=== PATIENT | male | born 1940 | race Caucasian/White ===

== ENCOUNTER 2024-04-19 10:27 | Emergency (ER) | payer MEDICARE, SELFPAY ==
[2024-04-19 10:40] VITALS: BP 181/85
--- NOTE | 2024-04-19 12:02 | ED.GENMED ---
History of Present Illness
General
Chief Complaint: Skin Problem
Source: patient
Exam Limitations: none
Time Seen by Provider: 04/19/24 11:04
Nursing documentation reviewed up to this point in time: agreed with
History of Present Illness
History of Present Illness:
Patient status post Mohs procedure behind his right ear 6 days ago, which had stopped postprocedure, started bleeding again while patient was showering this morning. Denies direct trauma. Denies nausea or vomiting. Denies dizziness. Denies
shortness of breath. Denies weakness. Patient takes 81 mg aspirin daily.
Past History
Past History
ED Past Medical History: HTN, Hypercholesterolemia and Other (Polio, BPH)
ED Past Surgical History: Urological
Social History
Tobacco: Non-smoker
Alcohol: Occasional
Drug: None
Personal:
Living: with family
Review of Systems
Review of Systems
Allergies reviewed?: Yes
All Other Systems: ROS reviewed and negative except as documented in HPI and ROS
Constitutional: Reports no symptoms
Respiratory: Denies trouble breathing
ABD/GI: Reports no symptoms
Musculoskeletal: Reports no symptoms
Skin: Reports other (Bleeding behind right ear)
Neurological: Reports no symptoms; Denies dizzy or weakness
Phy Exam
Physical Exam
Physical Exam:
Physical Exam
General: no apparent distress, not acutely ill. afebrile
Head: nc/at. eomi
Neck: supple. normal range of motion
Neuro: alert and oriented x 3. no focal neurological deficits
Skin: blood clot noted behind right ear with oozing of nonpulsatile bleeding.
Psychiatric: well kept. interactive and cooperative
Extremities: no edema.
Course
Orders/Labs/Results
Orders:
Orders
04/19/24 11:49
Tranexamic Acid 1,000 mg .ROUTE .STK-MED ONE
Vital Signs
Initial and Last Documented VS:
Initial Vital Signs
Temp Pulse Resp BP Pulse Ox
98 F 66 16 181/85 98
04/19/24 10:40 04/19/24 10:40 04/19/24 10:40 04/19/24 10:40 04/19/24 10:40
Last Documented Vital Signs
Temp Pulse Resp BP Pulse Ox
98 F 66 16 126/87 98
04/19/24 10:40 04/19/24 10:40 04/19/24 10:40 04/19/24 12:30 04/19/24 12:30
MDM/Problems Addressed
MDM/Problems Addressed:
Patient continued to bleed after application of lidocaine with epi topically. As such, gauze soaked with TXA, with adequate control bleeding. 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
upon discharge.
*Critical Care Note
Total Time (30-74mins, 75-104mins- exclusive of procedures): Not Applicable
ED Attending Note
-
Portions of this chart may have been created with voice recognition software.� Occasional wrong word or��sound alike� substitutions may have occurred due to the inherent limitations of voice recognition software.
Discharge Plan
Departure
Patient Disposition: Home (Routine Discharge)
Date of Disposition: 04/19/24
Time of Disposition: 12:02
Patient with high blood pressure during this ER visit?: Yes
Condition: Good
Discharge Problem:
Post-op bleeding
Instructions: Bleeding After Surgery
Prescriptions:
No Action
simvastatin 20 MG tablet
1 tab PO DAILY
lisinopril 10 MG tablet
10 mg PO DAILY
aspirin [Aspirin Low-Strength] 81 MG tablet,chewable
81 mg PO DAILY
Referrals:
Erwin Rothman MD [Family Provider] -
Activity Restrictions/Additional Instructions:
As discussed, please follow up with your boring mill operator for metal upon discharge for further evaluation and treatment.
Interventions
Interventions:
*Risk Screen - Suicide Last Done: 04/19/24 10:40
*General Assessment Last Done: 04/19/24 10:40
*Neglect/Abuse Screening Last Done: 04/19/24 10:40
ED- Fall Risk Assessment Last Done: 04/19/24 12:28
*ED COVID-19 Vaccine History Last Done: 04/19/24 12:28
*Nursing Disposition Last Done: 04/19/24 12:30
ED-Skin Assessment Last Done: 04/19/24 12:31
Discharge Date and Time
Discharge Date/Time: 04/19/24 12:32
Print Language: AZERBAIJANI
[2024-04-19 12:30] VITALS: BP 126/87
== END 2024-04-19 12:32 | disposition home or self-care (01) ==
LOC: EMR 10:27
PROVIDERS: EMERGENCY PHYSICIAN Emergency Medicine; FAMILY PHYSICIAN Specialist
DX: L76.21 Postprocedural hemorrhage of skin and subcutaneous tissue following a dermatologic procedure (principal); Y83.8 Other surgical procedures as the cause of abnormal reaction of the patient, or of later complication, without mention of misadventure at the time of the procedure; I10 Essential (primary) hypertension; E78.00 Pure hypercholesterolemia, unspecified; Z79.82 Long term (current) use of aspirin
CPT/HCPCS: 99282

== ENCOUNTER 2025-04-23 05:35 | Observation (INO) | payer MEDICARE, SELFPAY ==
[2025-04-22 17:57] VITALS: BP 205/110
[2025-04-22 18:24] LABS: Hematocrit 40.5 % (39.0-52.0); Hemoglobin 13.3 g/dL (13.0-18.0); Mean Corp Hgb Conc. 32.8 g/dL (33.0-37.0); Mean Corpuscular Volume 91.0 fL (80.0-94.0); Nucleated Red Blood Cells % 0 % (-); Platelet Count 237 10^3/uL (130-400); Red Cell Dist. Width 15.3 % (11.5-14.5)
[2025-04-22 18:32] LABS: INR 1.02; PT 13.5 Sec (11.4-14.6)
[2025-04-22 18:37] LABS: ALT (SGPT) 22 U/L (0-50); AST (SGOT) 32 U/L (17-59); Albumin 4.2 g/dl (3.5-5.0); Alkaline Phosphatase 77 U/L (38-126); Blood Urea Nitrogen 17 mg/dl (9-20); Calcium 9.0 mg/dl (8.4-10.2); Carbon Dioxide 24 mmol/L (22-30); Chloride 107 mmol/L (98-107); Glucose 92 mg/dl (70-99); Potassium 3.9 mmol/L (3.5-5.1); Sodium 140 mmol/L (135-145); Total Protein 6.8 g/dl (6.3-8.2); eGFR > 60.00
[2025-04-22 18:51] LABS: Troponin I 0.048 ng/ml
[2025-04-22 22:34] LABS: Troponin I 0.066 ng/ml
--- NOTE | 2025-04-22 22:49 | ED.GENMED ---
History of Present Illness
General
Chief Complaint: Head Injury
Source: patient and family
Exam Limitations: none
Time Seen by Provider: 04/22/25 22:40
Nursing documentation reviewed up to this point in time: agreed with
History of Present Illness
History of Present Illness:
This a pleasant 84-year-old male that presents to the emergency department with head injury. 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 He states that as a result of this, he frequently falls. Tonight he had such a fall striking the right
side of his head. Patient also states that he does have high blood pressure. He was on blood pressure medications but reports that he discontinued them because they were making him dizzy and lightheaded. Patient reports no chest pain. We did
discuss his lab work and he does understand that his troponin is rising. He absolutely denies any chest pain or shortness of breath. He denies anginal equivalents.
Head CAT scan is normal.
Past History
Past History
ED Past Medical History: HTN, Hypercholesterolemia and Other (Polio, BPH)
ED Past Surgical History: Urological
Social History
Tobacco: Non-smoker
Alcohol: Occasional
Drug: None
Personal:
Living: with family
Phy Exam
General Physical Exam
General Presentation: well appearing and no apparent distress
General age: appears stated age
General Skin: warm and dry
General Habitus: normal and elderly
General Mental: alert
General Hydration: appears well hydrated
ENT Exam
ENT Exam: EOMI, pharynx normal, neck supple and normocephalic
Eye Exam
Eye Exam: PERRL, cornea clear and conjunctiva normal
Cardiovascular Exam
Cardiovascular Exam: regular rate/rhythm
Systolic Murmur: 2/6
Pulmonary Exam
Pulmonary Exam: lungs clear and no respiratory distress
Gastrointestinal Exam
Gastrointestinal Exam: normal bowel sounds, non tender, soft, no organomegaly, no pulsatile mass and non distended
Neurological Exam
Neurological Exam: alert, oriented x3, no motor deficits and speech normal
Musculoskeletal Exam
Musculoskeletal Exam: full ROM and no edema
Skin Exam
Skin Exam: normal color, warm/dry and laceration (5 mm linear laceration to the right side of his scalp, surrounded by abrasion)
Psychiatric Exam
Psychiatric Exam: normal mood/affect
Course
Orders/Labs/Results
Orders:
Orders
04/22/25 18:00
CT Head W/o Iv Contrast Urgent
Comment:
Reason For Exam: fall with head strike
04/22/25 18:02
EKG [Electrocardiogram (*1)] Urgent
Reason for Study: Hypertension, Benign
04/22/25 18:03
EKG- Treatment ONCE
04/22/25 18:07
Complete Blood Count/With Diff Urgent
Comprehensive Metabolic Panel Urgent
Prothrombin Time Urgent
Troponin I Urgent
04/22/25 21:50
Troponin I Urgent
04/22/25 21:51
ECG [Electrocardiogram (*1)] Urgent
Reason for Study: Other
Other Reason for Exam: per protocol
04/22/25 21:52
EKG- Treatment ONCE
04/22/25 22:48
Nitroglycerin Ointment [Nitro-Bid] 1 inch TOPICAL NOW STA
Tetanus/Diphth/Acelpertussis [Adacel] 0.5 ml IM .ONCE ONE
04/22/25 22:50
Electrocardiogram (*1) Urgent
Reason for Study: Other
Other Reason for Exam: Possible Sepsis
EKG- Treatment ONCE
Abnormal Lab Results
04/22/25 04/22/25
18:07 21:50
RBC 4.45 L 10^6/uL
(4.70-6.10)
MCHC 32.8 L g/dL
(33.0-37.0)
RDW 15.3 H %
(11.5-14.5)
Troponin I 0.048 H* ng/ml 0.066 H* D ng/ml
04/22/25 18:07
04/22/25 18:07
Vital Signs
Initial and Last Documented VS:
Initial Vital Signs
Temp Pulse Resp BP Pulse Ox
98.7 F 58 18 205/110 98
04/22/25 17:57 04/22/25 17:57 04/22/25 17:57 04/22/25 17:57 04/22/25 17:57
Last Documented Vital Signs
Temp Pulse Resp BP Pulse Ox
98.7 F 63 18 191/114 96
04/22/25 17:57 04/22/25 23:45 04/22/25 23:45 04/22/25 23:30 04/22/25 23:45
Procedures
Laceration Closure
Right Medial Scalp:
Status of Wound: clean
Size of Wound in cm: 0.5
Description of Wound Edges: sharp and surrounded by abrasion
Preparation: cleaned with saline
Wound exploration: explored to base- no FB
Skin Closure Material: skin stan
Number of sutures: 1
MDM/Problems Addressed
MDM/Problems Addressed:
84-year-old male with no chest pain or other anginal equivalents has troponins that are rising.
Patient does have extremely high blood pressure secondary to his noncompliance with his blood pressure meds.
Patient to be admitted to the hospital service.
*Radiology
Radiology exam reviewed: radiology read reviewed
*Pulse Oximetry
SaO2: 98
Oxygen Mode of Delivery: Room air
Patient hypoxic: no
*Critical Care Note
Total Time (30-74mins, 75-104mins- exclusive of procedures): Not Applicable
Update Note
Update Note:
Tetanus shot updated. He is unsure of his last tetanus shot
ED Attending Note
-
Portions of this chart may have been created with voice recognition software.� Occasional wrong word or��sound alike� substitutions may have occurred due to the inherent limitations of voice recognition software.
Discharge Plan
Departure
Patient Disposition: Admit
Date of Disposition: 04/23/25
Time of Disposition: 00:10
Admit to: Telemetry
Presentation/result/management discussed w/ accepting MD/DO: Hospitalist
Condition: Fair
Discharge Problem:
Weakness, Hypertension, Acute non-ST elevation myocardial infarction (NSTEMI), Laceration of scalp
Prescriptions:
No Action
simvastatin 20 MG tablet
1 tab PO DAILY
lisinopril 10 MG tablet
10 mg PO DAILY
aspirin [Aspirin Low-Strength] 81 MG tablet,chewable
81 mg PO DAILY
Referrals:
Reinaldo Velazco DO [Family Provider, Family Practice]
Interventions
Interventions:
*General Assessment Last Done: 04/22/25 17:59
*Neglect/Abuse Screening Last Done: 04/22/25 17:59
*ED COVID-19 Vaccine History Last Done: 04/22/25 17:59
*ED Influenza Vaccine History Last Done: 04/22/25 17:59
[facility] Risk Assessment Tool Last Done: 04/22/25 22:45
*Risk Screen - Suicide (C-SSRS) Last Done: 04/22/25 17:59
ED- Neurological Assessment Last Done: 04/22/25 23:08
ED-Skin Assessment Last Done: 04/22/25 23:08
Discharge Date and Time
Print Language: KOREAN
[2025-04-22 22:55] VITALS: BP 218/89
[2025-04-22] MEDS: ADACEL 0.5 ML IM (22:59)
[2025-04-22] MEDS: NITRO-BID 1 INCH TOPICAL (23:01)
[2025-04-22 23:30] VITALS: BP 191/114
[2025-04-22 23:57] VITALS: BP 198/85
[2025-04-23] VITALS (20 sets, daily range): BP systolic 122–192; BP diastolic 65–93; BMI 26.0; BMI 25.2
--- NOTE | 2025-04-23 05:32 | HPS.HSE ---
Family Physician
-
Family Physician: Reinaldo Velazco, DO
Chief Complaint
-
Fall
History of Present Illness
Patient is an 84y M with PMH significant for hypertension, L carotid disease and post-polio syndrome with L weakness who presents to ED complaining of fall at home. Patient states that his L foot gave way on him - which happens periodically. He
fell and struck the R side of his head on the wall. No LOC. No prodrome of lightheadedness, dizziness, chest pain, etc prior to the fall. No recent symptoms / complaints.
Patient noted bleeding from side of his head and presented to the ED for evaluation.
He had a laceration to the R temporal area and stan were placed. CT head was unremarkable. His BP was elevated in the ED.
Troponin was checked in the ED and was abnormal.
He has no chest pain, dyspnea, palpitations, etc. No personal history of [place], CVA, etc.
Medical History
Past Medical History
Past Medical History: Reports Other
Additional Past Medical History:
ASCVD / Carotid Stenosis
Hypertension
Post-Polio Syndrome
Prostate Cancer
Past Surgical History: Reports Other
Additional Past Surgical History:
Prostate Seeds.
Appendectomy
Hernia Repair
Cataracts
Social History
Tobacco: Non-smoker
Alcohol: Daily (1 beer / day)
Drug: None
Family History
Family History: Not pertinent
Allergies / Home Medications
Allergies reflects when Allergies were last updated in [employer].
Home Medications with original date entered in [employer]
Allergy/Medication List:
Allergies
Allergy/AdvReac Type Severity Reaction Status Date / Time
No Known Allergies Allergy Unverified 04/05/17 10:13
Home Medications
aspirin 81 mg chewable tablet (Aspirin Low-Strength) 81 mg PO DAILY 03/17/09
lisinopril 10 mg tablet 10 mg PO BID 03/17/09
amlodipine 5 mg tablet 5 mg PO DAILY 04/23/25
simvastatin 40 mg tablet 40 mg PO HS 04/23/25
Review of Systems
-
History Source: Patient
A 12 point ROS was completed and negative except as noted: Yes
Constitutional: Denies Fever or Chills
Respiratory: Denies Cough or Trouble Breathing
Cardiac: Denies Chest Pain or Palpitations
Abdomen/GI: Denies Abdominal Pain, Nausea, Vomiting or Diarrhea
: Denies Dysuria or Flank Pain
Musculoskeletal: Denies Joint Pain or Edema
Neurological: Denies Dizzy or Headache
Psych: Denies Depression or Anxiety
Physical Exam
Vital Signs
Vital Signs
Temp Pulse Resp BP Pulse Ox
98.7 F 71 12 180/87 94
04/22/25 17:57 04/23/25 04:30 04/23/25 04:30 04/23/25 03:32 04/23/25 04:30
Physical Exam
General: Other (84y M in no distress.)
HEENT: Moist mucous membranes, PERRLA and Other (R temporoparietal hematoma / lac with stan in place. No active bleeding.)
Respiratory: Clear; No Wheezes, Rales or Rhonchi
Cardiac: S1/S2, Regular Rhythm and Murmur (II/ ESAU)
GI: Soft, Non Tender, Non Distended and Normal Bowel Sounds
Musculoskeletal: No Clubbing, No Cyanosis and Other (1+ pitting edema b/l LEs)
Neuro: AO x 3 and Other (Chronic L weakness - no new changes.)
Laboratory Results
-
04/22/25 18:07
04/22/25 18:07
Laboratory Results
PT 13.5 Sec (11.4-14.6) 04/22/25 18:07
INR 1.02 04/22/25 18:07
Total Bilirubin 0.6 mg/dl (0.2-1.3) 04/22/25 18:07
AST 32 U/L (17-59) 04/22/25 18:07
ALT 22 U/L (0-50) 04/22/25 18:07
Alkaline Phosphatase 77 U/L (38-126) 04/22/25 18:07
Troponin I 0.066 ng/ml H* D 04/22/25 21:50
Impression/Plan
-
A/P: Patient is an 84y M with PMH significant for hypertension, carotid stenosis and post-polio syndrome who presents to ED for evaluation of scalp lac s//p fall at home.
Hypertensive Urgency
Abnormal Troponin likely secondary to the above
- Observe overnight for further evaluation and treatment.
- No chest pain or ACS syndrome symptoms.
- No acute ischemia noted on EKG
- Follow troponin to peak.
- BP medications for improved BP control. IV hydralazine PRN.
- Follow for any new / worsening symptoms.
- Consider Cardiology evaluation if troponin continues to rise or patient develops ACS symptoms.
Fall at Home
R Scalp Lac
Post-Polio Syndrome
- Stable. s/p repair in the ED.
- On ASA alone - no 'thinners'.
- Follow neurologic exam. Repeat imaging if needed.
- 'Usual' mechanical fall due to post-polio deficits per patient . No suspicious prodrome.
ASCVD
Carotid Stenosis
- Known carotid stenosis being followed with serial US. No stent / intervention.
- No personal h/o [place], CVA, etc.
- Continue ASA, BP control, etc.
DVT Prophylaxis: SCDs
Code Status: Full
[2025-04-23] MEDS: NORVASC 5 MG PO (06:10)
[2025-04-23 06:30] LABS: Hematocrit 35.5 % (39.0-52.0); Hemoglobin 11.8 g/dL (13.0-18.0); Mean Corp Hgb Conc. 33.2 g/dL (33.0-37.0); Mean Corpuscular Volume 91.3 fL (80.0-94.0); Platelet Count 191 10^3/uL (130-400); Red Cell Dist. Width 15.2 % (11.5-14.5)
[2025-04-23 06:58] LABS: Blood Urea Nitrogen 15 mg/dl (9-20); Calcium 8.8 mg/dl (8.4-10.2); Carbon Dioxide 23 mmol/L (22-30); Chloride 109 mmol/L (98-107); Estimated Creatinine Clearance 70 ml/min; Glucose 94 mg/dl (70-99); HDL Cholesterol 53 mg/dl; LDL Cholesterol, Calculated 83 mg/dl; Potassium 3.8 mmol/L (3.5-5.1); Sodium 139 mmol/L (135-145); Very Low Density Lipoprotein 13 mg/dl (0-30); eGFR > 60.00
[2025-04-23 07:20] LABS: Troponin I 0.067 ng/ml
[2025-04-23] MEDS: ZESTRIL 10 MG PO ×2 (08:06→20:33)
[2025-04-23] MEDS: LOW STRENGTH ASPIRIN 81 MG PO (08:06)
[2025-04-23 08:28] LABS: Glycohemoglobin (HgbA1c) 5.4 % (4.0-5.9)
[2025-04-23 12:18] LABS: Troponin I 0.067 ng/ml
--- NOTE | 2025-04-23 14:23 | W.PN.HOSP.TC ---
Today's Communication/Plan
-
Continue to trend troponin, resume BP meds as remains hypertensive
Assessment / Plan
Assessment / Plan
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
Hypertensive Urgency
Abnormal Troponin likely secondary to the above
- No chest pain or ACS syndrome symptoms.
- No acute ischemia noted on EKG
- Follow troponin to peak. So far 0.067 has not gone down
- BP medications for improved BP control. IV hydralazine PRN. Continue amlodipine, lisinopril, BP still elevated, resume triamterene�HCTZ
- Follow for any new / worsening symptoms.
- Consider Cardiology evaluation if troponin continues to rise or patient develops ACS symptoms.
Fall at Home
Post-Polio Syndrome
- Follow neurologic exam. Repeat imaging if needed.
- 'Usual' mechanical fall due to post-polio deficits per patient . No suspicious prodrome.
PT
R Scalp Lac
- Stable. s/p repair in the ED.
Carotid Stenosis
- Known carotid stenosis being followed with serial US. No stent / intervention.
- No personal h/o [place], CVA, etc.
DVT Prophylaxis: Lovenox
Anticipated Discharge: Within 24 hours
Subjective/Interval History
-
Date of Service: April 23, 2025
Objective Data
-
Labs:
Laboratory Results
04/23/25
06:14
WBC 6.4
Hgb 11.8 L
Hct 35.5 L
Plt Count 191
Sodium 139
Potassium 3.8
Chloride 109 H
Carbon Dioxide 23
BUN 15
Creatinine 0.7
Glucose 94
Calcium 8.8
Vital Signs:
Vital Signs
Temp Pulse Resp BP Pulse Ox
98.7 F 90 20 184/89 96
04/22/25 17:57 04/23/25 10:45 04/23/25 10:45 04/23/25 09:27 04/23/25 08:00
--- NOTE | 2025-04-23 14:53 | EDCM ---
Reviewed chart and met with pt and bedside in ED. They live in [place] apartment at [facility].
Independent in ADLs, personal care, and ambulation at baseline, Uses cane in apartment and walker in hallways and when leaving the building.
AGUDELO reviewed and signed, copy left with pt.
Confirms prescription coverage.
No hx VN or SNF
PCP: Reinaldo Velazco
Pharmacy: [facility]
CM will continue to follow for all discharge planning needs.
[2025-04-23] MEDS: DYAZIDE 1 CAPSULE PO (16:49)
[2025-04-23] MEDS: LOVENOX 40 MG SC (17:19)
[2025-04-23] MEDS: LIPITOR 20 MG PO (17:19)
--- NOTE | 2025-04-23 17:32 | PTCARENOTE ---
received patient from ED, patient oriented to room, patient AAOx3, bed alarm on, call burgos within reach, educated on POC, vss, educated on risk for falls. patient c/o headache and reports it as tolerable declines intervention at time of assessment.
patient with 1 staple intact to right side of head and small skin tear to right hand 5th finger.
[2025-04-24 03:38] VITALS: BP 180/84
[2025-04-24 05:59] VITALS: BMI 25.2
[2025-04-24 06:47] LABS: Hematocrit 37.8 % (39.0-52.0); Hemoglobin 12.6 g/dL (13.0-18.0); Mean Corp Hgb Conc. 33.3 g/dL (33.0-37.0); Mean Corpuscular Volume 91.7 fL (80.0-94.0); Platelet Count 199 10^3/uL (130-400); Red Cell Dist. Width 15.0 % (11.5-14.5)
[2025-04-24 07:00] VITALS: BP 164/86
[2025-04-24 07:14] LABS: Troponin I 0.068 ng/ml
[2025-04-24 07:26] LABS: Blood Urea Nitrogen 17 mg/dl (9-20); Calcium 9.3 mg/dl (8.4-10.2); Carbon Dioxide 29 mmol/L (22-30); Chloride 107 mmol/L (98-107); Estimated Creatinine Clearance 54 ml/min; Glucose 87 mg/dl (70-99); Potassium 4.2 mmol/L (3.5-5.1); Sodium 139 mmol/L (135-145); eGFR > 60.00
[2025-04-24] MEDS: LOW STRENGTH ASPIRIN 81 MG PO (08:18)
[2025-04-24] MEDS: NORVASC 5 MG PO (08:18)
[2025-04-24] MEDS: DYAZIDE 1 CAPSULE PO (08:18)
[2025-04-24] MEDS: ZESTRIL 10 MG PO (08:18)
--- NOTE | 2025-04-24 09:16 | CON.CAR ---
Addendum entered and electronically signed by Brock Parsons DO 04/24/25 15:14:
Attestation: I have seen and examined the patient. I can confirm Ms. Feliciano's findings and I agree with her assessment and plan as documented.
84-year-old male with a past medical history of hypertension, left carotid artery stenosis and polio with residual left-sided leg weakness admitted after a fall at home. The patient reports that he was in his normal state of health when he suffered
a mechanical fall due to the weakness in his left leg. He struck his head but did not lose consciousness, stating that he clearly remembers the fall and post fall events. EMS was called and he was brought to [facility]. CT head ruled out
subarachnoid hemorrhage. A scalp laceration was stapled.
As part of his workup, the patient underwent routine laboratory testing which included a troponin. This lab value was abnormal at 0.048, peaking at 0.068. EKG is nonischemic. The patient reports no chest pain or shortness of breath. He denies
nausea and vomiting. He does admit to mechanical left shoulder discomfort which occurs when he raises his arm above shoulder height. It is unrelated to exertion.
When he presented to the emergency room, he was noted to be severely hypertensive with a blood pressure of 200/100. He subsequently reported that he self discontinued his home antihypertensive medications as he had been falling more frequently,
though he was not dizzy. He provides a home list of blood pressures which do show episodes of hypotension. He was subsequently admitted for observation. His blood pressure has been controlled with amlodipine and lisinopril as well as
reinstatement of triamterene/hydrochlorothiazide. An echocardiogram shows normal left ventricular size and function with an LVEF of 70-75%, mild/moderate aortic valve stenosis and mild to moderate mitral regurgitation. There is no evidence of
pulmonary hypertension.
On exam, vital signs are generally stable with a moderately elevated blood pressure.
His heart is regular with a normal rate. There is a soft 2/6 stock ejection murmur.
His lungs are clear to auscultation.
His abdomen is benign.
EKG shows trifascicular block but no signs of ischemia.
The patient's fall is entirely mechanical as he recalls the entire event without palpitations or prodrome. The troponin elevation is a nonischemic myocardial injury, likely due to severe hypertension which is now controlled. The patient should
remain on antihypertensive medications with a home blood pressure log to document his blood pressure consistently in the ambulatory setting for outpatient titration of these medications.
No further cardiovascular testing is currently indicated.
Thank you for this interesting consult. Signing off. Please call with questions.
Addendum entered and electronically signed by MIKO Dumont 04/24/25 12:24:
Update: Dr. Parsons is attending following me on patient, rather than Dr. Meza.
Original Note:
Consultation
Consultation Request
Date/Time Consultation Requested: 04/24/25816
Date/Time Consultation Performed: 04/24/25931
Requesting Provider: Dr. Del Cid
Performing Provider: Alicia CROUCH for Dr. Meza
Reason for Consultation: abnormal troponin
Medical History
-
Chief Complaint: fall with head strike
History of Present Illness:
84 y/o male with carotid artery disease (left-sided around 50% 2021 study), hypertension, hx polio, and hx prostate cancer who is here after he fell (due to left leg weakness, which is not uncommon for him due to hx polio). He struck his head, so
came to the ER. Head CT negative for intracranial abnormality, small right temporal scalp soft tissue hematoma noted- laceration addressed in ED. BP severely elevated on arrival, now improved. Of note, he reports in February, he noted BP's were on
low end so he came off of some of his BP medications, though has been taking lisinopril. We are consulted for abnormal troponin. He has no CP or SOB. He has II/ systolic murmur on assessment, but has been told he had a murmur before. EKG shows
RBBB- unknown chronicity. No dizziness or syncope.
Past Medical History
Past Medical History: Other (as above)
Social History
Tobacco: Non-Smoker
Alcohol: Daily (1 beer)
Personal:
Living: With Family
Family History
Family History: Reviewed & Not Pertinent
Allergies / Home Medications
Allergy/AdvReac Type Severity Reaction Status Date / Time
No Known Allergies Allergy Unverified 04/05/17 10:13
�Medication �Instructions �Recorded �Confirmed �Type
lisinopril 10 mg tablet 20 mg PO BID Blood Pressure 03/17/09 04/23/25 History
amlodipine 5 mg tablet 5 mg PO DAILY Blood Pressure 04/23/25 04/23/25 History
aspirin 81 mg tablet 81 mg PO DAILY Blood Clot 04/23/25 04/23/25 History
Prevention/Tx
cholecalciferol (vitamin D3) 25 25 mcg PO DAILY Supplement 04/23/25 04/23/25 History
mcg (1,000 unit) tablet
cyanocobalamin (vitamin B-12) 1,000 mcg PO DAILY Supplement 04/23/25 04/23/25 History
1,000 mcg tablet,extended release
(Vitamin B-12 ER)
sildenafil 100 mg tablet 100 mg PO DAILY PRN ed 04/23/25 04/23/25 History
simvastatin 40 mg tablet 40 mg PO HS High Cholesterol 04/23/25 04/23/25 History
triamterene 37.5 1 tab PO DAILY Blood Pressure 04/23/25 04/23/25 History
mg-hydrochlorothiazide 25 mg tablet
Review of Systems
-
History Source: Patient
All other systems: Negative unless noted
Musculoskeletal: Other (fall with head strike as noted in detail )
Physical Exam
Vital Signs
Temp Pulse Resp BP Pulse Ox
98.6 F 71 12 160/81 97
04/24/25 07:00 04/24/25 08:18 04/24/25 07:00 04/24/25 08:18 04/24/25 07:00
Lab Results
04/24/25 06:27
04/24/25 06:27
Troponin I 0.068 ng/ml H* 04/24/25 06:27
Physical Exam
General: Well Developed, Well Nourished and No Apparent Distress
HEENT: Normocephalic and Anicteric
Respiratory: Clear and Non Labored Respirations
Cardiac: Regular Rhythm
Musculoskeletal: No Edema
Skin: Warm and Dry
Neuro: AO x 3
Psych: Calm
Impression / Plan
-
Fall with head laceration:
-head CT as noted, laceration addressed in ER
Abnormal troponin:
-acute, non-ischemic myocardial injury in setting of severe hypertension
-no CP or SOB. Walks 2 miles without issue. EKG with RBBB (unknown chronicity)
-checking echo
Hypertension, severe:
-improved back on meds
-he reports BP's were on low end in February, so he has been off Dyazide and amlodipine, but has been taking lisinopril. He tells me he was not dizzy when they were on low end.
-BP meds resumed- continue and monitor pressures with this change
Systolic murmur:
-checking echo
RBBB:
-unknown chronicity
-tele stable SR
-no dizziness or syncope
Data Reviewed
-
EKG: Tracing Personally Visualized and interpreted (SR with RBBB, LAD [address] Scan: Report Reviewed by me (head CT: No acute intracranial abnormality noted. Small right temporal scalp soft tissue hematoma.)
Medical Tests (Nuc Med, Echo etc): Report Reviewed by me
Labs: Labs Reviewed by me
[2025-04-24 11:42] VITALS: BP 162/81
--- NOTE | 2025-04-24 12:51 | W.PN.HOSP.TC ---
Today's Communication/Plan
-
Echo, cardiology consult, BP control
Possible discharge if no further intervention from cardiology
Assessment / Plan
Assessment / Plan
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
Hypertensive Urgency
Abnormal Troponin likely secondary to the above
- No chest pain or SOB
- No acute ischemia noted on EKG
- Follow troponin to peak. So far 0.068 has not gone down
- BP medications for improved BP control. IV hydralazine PRN. Continue amlodipine, lisinopril, triamterene�HCTZ. Patient reports he stopped taking his BP meds last year due to dizziness, we discussed that if he does have issues when he is home
to discuss with the physician, who could adjust the medication stepwise.
- Follow for any new / worsening symptoms.
Cardiology consulted for recommendation
Echo performed. No regional wall motion abnormalities. EF 70 to 75%
Aortic stenosis
Echo shows mild to moderate aortic stenosis, mild to moderate MR, mild to moderate TR
Outpatient follow-up
fall at Home
Post-Polio Syndrome
- Follow neurologic exam. Repeat imaging if needed.
- 'Usual' mechanical fall due to post-polio deficits per patient . No suspicious prodrome.
PT
R Scalp Lac
- Stable. s/p repair in the ED.
Carotid Stenosis
- Known carotid stenosis being followed with serial US. No stent / intervention.
- No personal h/o NM, CVA, etc.
BLE edema
Wears compression hose normally
Unclear if this is just from PVD or poor circulation
DVT Prophylaxis: Lovenox
Anticipated Discharge: Today
Subjective/Interval History
-
Date of Service: April 24, 2025
Patient denies any acute issues overnight. Updated on plan of care patient verbalized understanding.
Objective Data
-
Labs:
Laboratory Results
04/24/25
06:27
WBC 6.3
Hgb 12.6 L
Hct 37.8 L
Plt Count 199
Sodium 139
Potassium 4.2
Chloride 107
Carbon Dioxide 29
BUN 17
Creatinine 0.9
Glucose 87
Calcium 9.3
Vital Signs:
Vital Signs
Temp Pulse Resp BP Pulse Ox
97.6 F 66 16 162/81 98
04/24/25 11:42 04/24/25 11:42 04/24/25 11:42 04/24/25 11:42 04/24/25 11:42
I&O
04/23/25 04/24/25 04/25/25
06:59 06:59 06:59
Output Total 1100 / 1100
Balance -1100 / -1100
Review of Systems
-
History Source: Patient
All other systems: Reviewed and negative
Physical Exam
-
General: No Apparent Distress
HEENT: Moist Mucous Membranes, Anicteric and PERRLA
Respiratory: Clear to Auscultation; Negative Wheezes, Rales or Rhonchi
Cardiac: Regular Rhythm, S1/S2 and Murmur; Negative Rub or Gallop
GI: Soft, Nontender, Nondistended and Normal Bowel Sounds
Musculoskeletal: Edema, Left Upper Extrem and Edema, Right Lower Extrem
Skin: Warm and Dry; Negative Rash, Ulcers or Lesions
Neuro: Awake and AO x 3
Hematologic / Lymphatic: No Lymphadenopathy
Psych: Calm
Data Reviewed
-
Medical Tests (Nuc Med, Echo etc): Report Reviewed by me
Labs: Labs Reviewed by me and Discussed with Patient
[2025-04-24 13:03] LABS: Troponin I 0.048 ng/ml
[2025-04-24 15:00] VITALS: BP 128/62
[2025-04-24 15:31] VITALS: BP 159/81; PULSE 67; O2SAT 97
--- NOTE | 2025-04-24 16:35 | CM ---
entered order for discharge.
Spoke with Shira [phone] cell [phone] she said she will drive her home .
Offered VN she declined need.
PLAN Home no needs
== END 2025-04-24 17:18 | disposition home or self-care (01) ==
LOC: 4 EAST ACU 05:35
PROVIDERS: Emergency Medicine; ADMITTING PHYSICIAN Hospitalist; ATTENDING PHYSICIAN Internal Medicine; EMERGENCY PHYSICIAN Student in an Organized Health Care Education/Training Program; FAMILY PHYSICIAN Student in an Organized Health Care Education/Training Program; OTHER PHYSICIAN Internal Medicine Cardiovascular Disease
DX: I16.0 Hypertensive urgency (principal); I10 Essential (primary) hypertension; I08.3 Combined rheumatic disorders of mitral, aortic and tricuspid valves; E78.00 Pure hypercholesterolemia, unspecified; G14 Postpolio syndrome; I25.10 Atherosclerotic heart disease of native coronary artery without angina pectoris; I45.10 Unspecified right bundle-branch block; I65.29 Occlusion and stenosis of unspecified carotid artery; S01.01XA Laceration without foreign body of scalp, initial encounter; Z79.899 Other long term (current) drug therapy; Z91.148 Patient's other noncompliance with medication regimen for other reason; W19.XXXA Unspecified fall, initial encounter; I5A Non-ischemic myocardial injury (non-traumatic); R60.0 Localized edema; Z23 Encounter for immunization
CPT/HCPCS: 12001; 70450; 80048; 80053; 80061; 83036; 84484; 85025; 85027; 85610; 90471; 90715; 93005; 93306; 99285; G0378